=== PATIENT | male | born 1955 | race Caucasian/White ===

== ENCOUNTER 2025-02-15 09:44 | Day surgery (SDC) | payer MEDICARE, BC ==
[~2025-02-15] VITALS: Ht 177.8 cm; Wt 82.1 kg
[2025-02-15] VITALS (8 sets, daily range): BP systolic 122–157; BP diastolic 64–78; PULSE 65–74; RESP 14–16; TEMP 98.2; O2SAT 94–96
[~2025-02-15 09:44] MED LIST: AMIO200T72 PO; DAPA10TA PO; HYDR-3968 PO; HYDR-3972 PO; LISI5TAB22 PO; METF-1203 PO; METO-384 PO; SEMA2PEN SQ; SIMV-42 PO
[2025-02-15] MEDS ORDERED: FERR325T29 PO (10:15)
[2025-02-15] MEDS ORDERED: PIOG30TA71 PO (10:15)
[2025-02-15] MEDS ORDERED: MULT-1085 PO (10:16)
[2025-02-15] MEDS: normal saline 1,000 ML IV SCH (10:33)
[2025-02-15] MEDS: diphenhydrAMINE 25mg capsule PO PRN (10:33)
[2025-02-15] MEDS: sodium bicarbonate 1meq/ml syr 150 ML in dextrose 5%-water 1,000 ML IV ONE (10:34)
[2025-02-15 10:35] LABS: BASOPHILS # (AUTO) 0.1 X10'3 (0-0.2); BASOPHILS % (AUTO) 1.1 % (0-1); EOSINOPHILS # (AUTO) 0.2 X10'3 (0-0.9); EOSINOPHILS % (AUTO) 1.8 % (0-6); HEMATOCRIT 49.4 % (42.0-52.0); HEMOGLOBIN 15.7 g/dl (14.0-17.9); LYMPHOCYTES # (AUTO) 1.7 X10'3 (1.1-4.8); LYMPHOCYTES % (AUTO) 18.6 % (21-51); MEAN CORPUSCULAR HEMOGLOBIN 25.7 PG (27.0-31.0); MEAN CORPUSCULAR HGB CONC 31.8 g/dL (33.0-36.5); MEAN CORPUSCULAR VOLUME 80.7 FL (78-98); MEAN PLATELET VOLUME 8.3 FL (7.4-10.4); MONOCYTES # (AUTO) 0.7 X10'3 (0-0.9); MONOCYTES % (AUTO) 7.6 % (2-12); NEUTROPHILS # (AUTO) 6.5 X10'3 (1.8-7.7); NEUTROPHILS % (AUTO) 70.9 % (42-75); PLATELET COUNT 277 X10'3 (140-440); RED BLOOD COUNT 6.12 X10'6 (4.70-6.10); RED CELL DISTRIBUTION WIDTH 32.4 % (11.5-14.5); WHITE BLOOD COUNT 9.2 X10'3 (4.5-11.0)
--- NOTE | 2025-02-15 10:37 | ELECTROCARDIOGRAPH REPORT ---
[facility] Test Date: 2025-02-15 Test Time: 10:33:54 Pat Name: MILTON ARZOLA Department: [facility] Patient ID: [id number] Room: Gender: M Home Assessment Nurse: : [id number] Requested By: JOVON RIZZO Order Number: [id number] Reading MD: Dr. Iesha Feliz Measurements Intervals [place] Rate: 69 P: 60 MA: 250 QRS: 99 QRSD: 163 T: 18 QT: 492 QTc: 527 Interpretive Statements Sinus rhythm Prolonged MA interval RBBB and LPFB Electronically Signed On 02-17-2025 19:10:[address] Iesha Feliz Please click the below link to view image of tracing.
[2025-02-15 10:45] LABS: ALBUMIN 4.7 G/DL (3.4-5.0); ANION GAP 10 (8-16); BLOOD UREA NITROGEN 16 MG/DL (7-18); CALCIUM 9.4 MG/DL (8.5-10.1); CHLORIDE 101 MMOL/L (99-107); CREATININE 0.94 MG/DL (0.60-1.10); GLUCOSE 170 MG/DL (70-104); MAGNESIUM 2.6 MG/DL (1.5-2.4); POTASSIUM 4.5 MMOL/L (3.5-5.1); PROTHROMBIN TIME 10.3 SECONDS (9.0-12.0); SODIUM 141 MMOL/L (135-145); TOTAL CARBON DIOXIDE 30.5 MMOL/L (24-32); eCRCL 78 ML/MIN; eGFR 80 ML/MIN
[2025-02-15] MEDS ORDERED: verapamil 2.5 mg/ml inj IV ONE (10:46)
[2025-02-15] MEDS ORDERED: fentaNYL/PF 50MCG/1 ML 2ML syringe ONE (10:46)
[2025-02-15] MEDS ORDERED: LIDOcaine 1% (10mg/ml) 2ml vial ONE (10:46)
[2025-02-15] MEDS ORDERED: iohexol 350 MG/ML 50ML vial IV ONE (10:46)
[2025-02-15] MEDS ORDERED: midazolam 1 mg/ML 2ml injection ONE ×2 (10:46→11:27)
[2025-02-15] MEDS ORDERED: heparin 1,000unit/ml 10ml vial 10 ML ONE (10:47)
[2025-02-15] MEDS ORDERED: iohexol 350MG/ML 100ml bottle IV ONE ×2 (10:47→11:47)
[2025-02-15] MEDS ORDERED: nitroGLYCERIN 500mcg/5mL D5W 5 ML IV ONE (10:48)
[2025-02-15 10:51] LABS: ANISOCYTOSIS 3+; HYPOCHROMASIA 1+; PLATELET ESTIMATE NORMAL
[2025-02-15 10:52] LABS: ELLIPTOCYTES FEW; STOMATOCYTES 1+
[2025-02-15] MEDS ORDERED: aspirin 325mg tablet ONE (12:36)
[2025-02-15] MEDS ORDERED: ticagrelor 90mg tablet ONE (12:36)
[2025-02-15] MEDS ORDERED: HYDROcodone/acetaminophen 10/325mg tab PO PRN (13:05)
[2025-02-15] MEDS ORDERED: ondansetron/PF 4mg/2ml inj IV PRN (13:05)
[2025-02-15] MEDS ORDERED: proCHLORperazine 10 MG/2 ml inj IV PRN (13:05)
[2025-02-15] MEDS ORDERED: HYDROcodone/acetaminophen 5mg/325mg tablet PO PRN (13:05)
--- NOTE | 2025-02-15 13:40 | CARDIOLOGY REPORT ---
DATE OF SERVICE: 02/15/2025 DICTATING PHYSICIAN: JOVON RIZZO DO CARDIAC CATHETERIZATION REPORT REFERRING PHYSICIAN: Gil Bill MD. CLINICAL HISTORY: This 69-year-old man has occasional episodes of chest discomfort. He has had a pharmacologic stress test demonstrating a small, somewhat distal inferior wall reversible defect. The ejection fraction was estimated at 39%. PROCEDURES PERFORMED: * Left heart catheterization. * Left ventriculography. * Selective coronary arteriography. * Attempted PTCA (occluded mid RCA). * PTCA/stent placement (mid LAD). * PTCA/stent placement, ostial principal LAD diagonal (emanating from the stented mid LAD). * A 75-minute conscious sedation supervision. DESCRIPTION OF PROCEDURE: The patient was sedated with fentanyl and Versed. He was then prepared and draped in the usual manner. The right radial area was infiltrated with 1% lidocaine. Using a micropuncture set and Seldinger technique, a 6-Gambian sheath was placed in the radial artery. A typical cocktail of 200 mcg of nitroglycerin and 2.5 mg of verapamil were directly injected into the radial artery, 5,000 units of heparin were given in a peripheral IV. Left heart catheterization and left ventriculography were performed using a 6-Gambian pigtail catheter. Coronary arteriography was performed using 6-Gambian Kimny catheter for both left and right coronary arteries. PTCA/STENT PLACEMENT. The right coronary was engaged with a 6-Gambian 0.75 side-holed guiding catheter. Using a 1.2 mm balloon and a ChoICE PT2 guidewire, there was an attempt at crossing an occlusion of the right coronary located within the mid main stem vessel. The wire crossed, but appeared to be in the subintimal area of the right coronary. After several passes, a decision was made to not pursue this any further. The left main coronary artery was engaged with a 6-Gambian #4 XB LAD guiding catheter. A ChoICE PT2 guidewire was passed down through the LAD across 75-80% stenosis in the mid vessel and the tip was positioned distally. The lesion was dilated with a 3.5 x 15 mm balloon. The residual stenosis was covered with a 3.5 x 15 mm Xience drug-eluting stent. Test injections demonstrated an impingement on the ostium of the diagonal overlapping the location of the stent. Therefore, the ChoICE PT2 guidewire was positioned in the diagonal. The ostium was dilated with a 2.25 x 8 mm balloon. There was still a residual stenosis. Therefore, a 2.25 x 8 mm drug-eluting stent was positioned in the diagonal and deployed at 12 atmospheres. Test injections demonstrated stability of the treated area. Simultaneous double balloon inflation was not deemed necessary since the takeoff of the diagonal was almost at a 90-degree angle. Final arteriography was performed. The sheath was removed from the radial artery and a Vasc band was applied. RESULTS: HEMODYNAMIC DATA: The left ventricular end diastolic pressure was 10 mmHg. There was no gradient across the aortic valve. LEFT VENTRICULOGRAM: The left ventriculogram was technically satisfactory. The posterior basal and inferior cartwright were akinetic. There was a subsegment of the anterolateral wall that was akinetic and the rest of the apex was mildly hypokinetic. The anterobasal segment was hypokinetic. The estimated ejection fraction was 35%. CORONARY ARTERIOGRAPHY: The coronary arteriograms were technically satisfactory. The right coronary was a large vessel with a 100% occlusion just after the vessel coursed past the acute marginal bend. LEFT MAIN CORONARY ARTERY: The left main was a large unobstructed vessel trifurcating into left anterior descending, intermediate, and circumflex coronary arteries. LEFT ANTERIOR DESCENDING CORONARY ARTERY: The LAD was a [id number] transapical vessel with a large first diagonal taking its origin from the mid LAD. There was a small to medium-sized second diagonal that also took its origin from the mid LAD. In close proximity to the takeoff of the first diagonal, there was a 75-80% stenosis. There was no significant stenosis of that first diagonal. INTERMEDIATE ARTERY: The intermediate was a medium to large unobstructed vessel. CIRCUMFLEX CORONARY ARTERY: The circumflex was a large main stem vessel. There was a large first obtuse marginal, a small second obtuse marginal, and 2 very small posterolateral branches. There were no obstructive lesions in the circumflex coronary artery. Collateral filling of the right coronary was observed and it appeared to be coming from the circumflex coronary artery. There was a suggestion that the occlusion in the main stem right coronary was short. PTCA/STENT PLACEMENT: As already noted, successful crossing into the true lumen of the occluded right coronary was unsuccessful. After balloon dilation and stenting of the LAD and the principal LAD diagonal, there was no significant residual stenosis and brisk runoff distally. CONCLUSIONS: * Obstructive coronary artery disease, principally manifested as follows: * A. A 100% mid occlusion of the right coronary artery. * B. A 75-80% mid LAD with impingement on the ostium of the principal diagonal after placement of the stent. * Successful stenting of the mid LAD lesion and the ostium of the principal diagonal branch. Following the intervention, there was no significant residual stenosis. LEANDRO flow 3 was achieved before and after the intervention. * Unsuccessful attempt at crossing the occluded mid RCA. * Left ventricular function is markedly abnormal. There was posterobasal and inferior akinesis. There was also subsegmental anterolateral akinesis and the remaining wall motion was hypokinetic. The estimated LVEF was 35% at best. RECOMMENDATIONS: Ongoing medical therapy. JOVON RIZZO DO TID: [id number] RECEIPT: [id number] EUGENIO MTDSara
[2025-02-15] MEDS: ketorolac trometh 15mg/ml vial 15 MG/ML ML IV ONE (13:41)
[2025-02-15] MEDS ORDERED: TICA90TA2 PO (15:11)
[2025-02-15] MEDS ORDERED: ASPI81TA52 PO (15:13)
== END 2025-02-15 16:15 | disposition home or self-care (01) ==
LOC: SSTAY O 09:44
PROVIDERS: ATTEND Internal Medicine Cardiovascular Disease
DX: R94.39 Abnormal result of other cardiovascular function study (principal); I25.10 Atherosclerotic heart disease of native coronary artery without angina pectoris; I48.0 Paroxysmal atrial fibrillation; I42.9 Cardiomyopathy, unspecified; Z79.899 Other long term (current) drug therapy; E11.9 Type 2 diabetes mellitus without complications; Z98.890 Other specified postprocedural states
CPT/HCPCS: 36415; 80048; 82948; 83735; 85025; 85610; 93005; 93458; 99152; 99153; A6258; A6402; C1725; C1751; C1769; C1874; C1894; C9600; C9601; J1644; J1885; J2003; J2250; J3010; J3490; J7030; J7070; Q0163; Q9967; Z7610; 85008; C9607